=== PATIENT | female | born 1950 | race Caucasian/White ===

== ENCOUNTER → 2016-09-12 | Outpatient (CLI) | payer OTHER ==
--- NOTE | 2016-09-13 09:24 | MR ---
MRI Lumbar Spine, Without Contrast History: Back pain. Right radiculopathy. History of multiple sclerosis. ICD-10 code: M54.16. Comparisons: None. Technique: MRI is performed of the lumbar spine using a 1.5 [employer] MRI system. Sagittal and axial imag ing was obtained with standard imaging sequences. Findings: No significant bone marrow abnormality is visualized. Small benign hemangioma or focal luis nd of fatty marrow is seen posteriorly in the L2 vertebral body. No evidence for compression fracture . There is mild disk desiccation in the lumbar spine. Mild disk height narrowing at L3-L4 and L4-L5. No significant spondylolisthesis. Conus is visualized at L1-L2 and is unremarkable. The visualized lo wer thoracic spinal cord is normal in signal intensity. 3 cm renal cortical cyst is seen in the left kidney. T12-L1 level unremarkable. L1-L2 level unremarkable. L2-L3 level demonstrates a mild broad-based annular bulge and mild facet and ligamentum flavum hypert rophy causing mild spinal canal and mild bilateral neural foraminal narrowing. L3-L4 level demonstrates a broad-based annular bulge. This asymmetric laterally to the right. Moderat e facet arthropathy is seen bilaterally causing mild spinal canal narrowing. There is moderate to sev ere right neural foraminal and mild left neural foraminal narrowing. L4-L5 level demonstrates a broad-based annular bulge. Moderate facet hypertrophy is seen bilaterally. There is mild spinal canal and bilateral lateral recess narrowing. There is mild left and moderate r ight neural foraminal narrowing. L5-S1 level demonstrates minimal broad-based annular bulge. Mild facet arthropathy is seen bilaterall y. No significant encroachment. 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 Most significan t level is at L3-L4 where there is mild spinal canal and moderate severe right and mild left neural f oraminal narrowing. Please see detailed description by level above.
== END ==
LOC: FIMAGING 18:34
PROVIDERS: ATTEND Psychiatry & Neurology Neurology
DX: M51.36 Other intervertebral disc degeneration, lumbar region (principal); M47.26 Other spondylosis with radiculopathy, lumbar region; M48.06 Spinal stenosis, lumbar region

== ENCOUNTER → 2018-01-10 | Outpatient (CLI) | payer OTHER | LOC: BRMIMAGING 13:54 | PROVIDERS: ATTEND Family Medicine | DX: Z13.820 Encounter for screening for osteoporosis (principal); M81.0 Age-related osteoporosis without current pathological fracture ==

== ENCOUNTER → 2018-08-24 | Outpatient (CLI) | payer OTHER | LOC: FIMAGING 10:51 | PROVIDERS: ATTEND Psychiatry & Neurology Neurology | DX: G35 Multiple sclerosis (principal) ==

== ENCOUNTER → 2018-11-04 | Outpatient (CLI) | payer OTHER | LOC: CIMAGING 11:23 | PROVIDERS: ATTEND Family Medicine | DX: J40 Bronchitis, not specified as acute or chronic (principal); Z87.891 Personal history of nicotine dependence | CPT/HCPCS: 71046-PO ==

== ENCOUNTER → 2018-11-11 | Outpatient (CLI) | payer OTHER | LOC: BRMIMAGING 10:44 | PROVIDERS: ATTEND Family Medicine | DX: R05 Cough (principal); E04.9 Nontoxic goiter, unspecified; Z87.891 Personal history of nicotine dependence ==